=== PATIENT | female | born 2000 | race Hispanic/Latino ===

== ENCOUNTER 2022-05-09 13:27 | Emergency (ER) | payer OTHER, SELFPAY ==
[2022-05-09 13:39] VITALS: BP 122/86; PULSE 104; RESP 22; TEMP 36.5; O2SAT 99; BMI 30.6
--- NOTE | 2022-05-09 14:00 | DI.US.S_ITS ---
PROCEDURE: US PELVIC COMPLETE INDICATIONS: BLEEDING TECHNIQUE: Real-time scanning was performed of the pelvic organs, with image documentation. Additional endovaginal scanning was necessary due to incomplete visualization of the adnexal and endometrial structures by transabdominal scanning. COMPARISON: None. FINDINGS: Uterus: Uterus is anteverted and normal in size at 7 x 3.2 x 3.4 cm. The myometrium is homogeneous. The endometrium measures 7 8 mm combined thickness. No findings of an intrauterine can be seen. No abnormal vascularity can be seen along the endometrial stripe. Ovaries: The right ovary measures 2.9 x 2.1 x 2.2 cm, with a calculated ovarian volume of 6 point cc. The left ovary measures 2.4 x 1.4 x 2 point cm, with a calculated ovarian volume of 3.6 cc. The ovaries have a normal sonographic appearance. Less than 12 follicles can be seen in each ovary. No adnexal masses are seen. Other: No pathologic free abdominal or pelvic fluid. IMPRESSION: No findings of an intrauterine can be seen. No ghislaine findings of ectopic can be seen on these images. Close clinical followup, with serial beta-hCG and serial ultrasound are recommended, if clinically appropriate. We strive to produce accurate, complete, and clear reports of imaging services. To assist us in improving patient care, this report was composed using standard report templates and voice recognition software. Therefore, it may contain abnormal punctuation, insertions and/or omissions. Occasional wrong-word or sound-alike substitutions may occur. Though we review the report and make efforts to correct it, we do recommend that the report be read carefully in proper context to recognize any text inaccuracies. Dictated by: Tremayne Moses M.D. on 05/09/2022 at 14:37 Approved by: Tremayne Moses M.D. on 05/09/2022 at 14:38
[2022-05-09 14:18] LABS: Add Manual Diff / Slide Review NO; Basophils Absolute Auto 0 /uL (0-100); Basophils Percent Auto 0.3 % (0-2); Eosinophils Absolute Auto 100 /uL (0-450); Eosinophils Percent Auto 0.8 % (2-4); Hematocrit 37.4 % (36-46); Hemoglobin 12.7 g/dL (12.0-16.0); Lymphocytes Absolute Auto 2500 /uL (1100-4500); Lymphocytes Percent Auto 21.8 % (25-40); Mean Corpuscular HGB Conc 33.9 % (30-36); Mean Corpuscular Hemoglobin 28.6 PG (26-34); Mean Corpuscular Volume 84.3 fL (80-100); Monocytes Absolute Auto 800 /uL (0-900); Monocytes Percent Auto 7.1 % (3-14); Neutrophils Absolute Auto 8200 /uL (1500-7000); Platelet Count 333 X10^3/uL (150-400); Red Blood Cell Count 4.43 X10^6/uL (4.0-5.2); White Blood Cell Count 11.7 X10^3/uL (4.5-11.0)
[2022-05-09 14:53] LABS: Alanine Aminotransferase 20 IU/L (<35); Albumin 4.7 g/dL (3.5-5.0); Albumin Globulin Ratio 1.3 (1.0-2.8); Alkaline Phosphatase 79 U/L (38-126); Aspartate Aminotransferase 24 IU/L (14-36); BUN Creatinine Ratio 14.1 (6-22); Bilirubin Total 0.4 mg/dL (0.2-1.3); Blood Urea Nitrogen 10 mg/dL (7-17); Calcium 9.5 mg/dL (8.4-10.2); Carbon Dioxide 26 mmol/L (22-32); Chloride 105 mmol/L (98-107); Estimated Glomerular Filt Rate > 60 mL/min (>60); Globulin 3.7 g/dL (1.7-4.1); Glucose 101 mg/dL (70-100); HEMOLYSIS < 15 (0-50); Potassium 3.9 mmol/L (3.4-5.1); Sodium 139 mmol/L (137-145); Total Protein 8.4 g/dL (6.3-8.2)
[2022-05-09 15:14] VITALS: BP 110/72; PULSE 99; RESP 18; O2SAT 99
[2022-05-09 15:18] LABS: HCG Quantitative /Beta subunit < 2.4 mIU/mL
[2022-05-09 15:32] LABS: Appearance Urine UA CLEAR; Bilirubin Urine UA NEGATIVE (NEGATIVE); Color Urine UA YELLOW; Glucose Urine UA NEGATIVE (Negative); Ketones Urine UA NEGATIVE (NEGATIVE); Leukocyte Esterase Urine UA NEGATIVE (NEGATIVE); Nitrite Urine UA NEGATIVE (Negative); Occult Blood Urine UA 3+ (Negative); Protein Urine UA NEGATIVE (Negative); Urobilinogen Urine UA 0.2 E.U./dL (0.2)
[2022-05-09 15:41] LABS: pH Urine UA 6.5 (4.5-8.0)
[2022-05-09 15:42] LABS: Bacteria Urine None Seen; Culture Indicated Urine Cult Not Indicated; RBC Urine 10-30/HPF (0-5/HPF); Squamous Epithelial Cell Urine 0-1 /HPF (0-5/HPF); WBC Urine 0-1/HPF (0-5/HPF)
--- NOTE | 2022-05-09 17:21 | ED_ITS ---
HPI - General Chief complaint: OB/Uterine Contractions Stated complaint: tested +, bleeding 3 days, getting worse Time Seen by Provider: 05/09/22 17:09 Source: patient Mode of arrival: Family Vehicle History of Present Illness HPI Narrative: This is a 22-year-old female with last menstrual period on December 15, patient s tates she typically has irregular periods usually every other month. She did serial test at home in February and states she was negative, she did a test about a week was positive she presents today because she was having vaginal bleeding. Patient states she has not been sexually active since December. She states there was not any sexual activity between her negative test and most recent positive. Patient states she is not on any daily medications she does use condoms for sexual activity. She describes some breast discomfort, some lower pelvic cramping and mild back discomfort. No fevers or chills no chest pain shortness of breath. No nausea or vomiting. No frequency or urgency, occasional dysuria but not persistent. She denies any vaginal discharge. She is not had any spotting or bleeding between December and this month. Patient is not on any contraceptive therapy other than condoms currently. Patient denies any major surgeries. Related Data Allergies Allergy/AdvReac Type Severity Reaction Status Date / Time No Known Drug Allergies Allergy Verified 05/09/22 13:39 Review of Systems Review of Systems ROS Unobtainable: All systems reviewed & are unremarkable except as noted in HPI and below Exam Narrative Exam Narrative: GENERAL: Alert and oriented x three, mild distress HEENT: Head normocephalic, atraumatic, EOMI, pupils reactive, face symmetric, moist mucous membranes NECK: Supple, full range of motion CARDIOVASCULAR: Regular rate and rhythm without murmurs, rubs or gallops. RESPIRATORY: Breath sounds equal bilaterally, no wheezes rales or rhonchi. ABDOMEN: Soft, nontender. Normoactive bowel sounds all 4 quadrants. No guarding or rebound, rigidity, no mass : No CVA tenderness. Patient politely defers pelvic exam. EXTREMITIES: Normal range of motion, no clubbing or edema. Neurovascularly intact NEUROLOGICAL: Cranial nerves II through XII grossly intact. Moving all extremities SKIN: Warm, dry, no petechiae, no rashes or lesions. Initial Vital Signs Initial Vital Signs: Vital Signs Temperature 97.7 F 05/09/22 13:39 Pulse Rate 104 H 05/09/22 13:39 Respiratory Rate 22 05/09/22 13:39 Blood Pressure 122/86 05/09/22 13:39 Pulse Oximetry 99 05/09/22 13:39 Oxygen Delivery Method 05/09/22 13:39 Course Orders Ordered: ED Orders 05/09/22 14:00 US pelvic complete Stat Type and Screen Stat 05/09/22 14:13 Complete Blood Count AUTO DIFF Stat 05/09/22 14:34 Beta HCG, Quant [HCG Quantitative /Beta subunit] Stat CMP [Comprehensive Metabolic Panel] Stat 05/09/22 15:14 Urinalysis and Microscopic Stat Vital Signs Vital signs: Vital Signs - 8 hr 05/09/22 13:39 05/09/22 15:14 05/09/22 17:50 Temperature 97.7 F Pulse Rate 104 H 99 H 88 Respiratory Rate 22 18 18 Blood Pressure 122/86 110/72 Pulse Oximetry 99 99 99 Oxygen Delivery Method Room Air Room Air Room Air MDM - OB/Uterine Contractions Lab Data Result diagrams: 05/09/22 14:13 05/09/22 14:34 Labs: Lab Results 05/09/22 05/09/22 05/09/22 Range/Units 14:00 14:13 14:34 WBC 11.7 H (4.5-11.0) X10^3/uL RBC 4.43 (4.0-5.2) X10^6/uL Hgb 12.7 (12.0-16.0) g/dL Hct 37.4 (36-46) % MCV 84.3 (80-100) fL MCH 28.6 (26-34) PG MCHC 33.9 (30-36) % RDW 14.0 (11.6-14.8) % Plt Count 333 (150-400) X10^3/uL Neut % (Auto) 70.0 (50-75) % Lymph % (Auto) 21.8 L (25-40) % [place] % (Auto) 7.1 (3-14) % Eos % (Auto) 0.8 L (2-4) % Baso % (Auto) 0.3 (0-2) % Neut # (Auto) 8200 H (4699-7828) /uL Lymph # (Auto) 2500 (4721-6353) /uL [place] # (Auto) 800 (0-900) /uL Eos # (Auto) 100 (0-450) /uL Baso # (Auto) 0 (0-100) /uL Sodium (137-145) mmol/L Potassium (3.4-5.1) mmol/L Chloride (98-107) mmol/L Carbon Dioxide (22-32) mmol/L BUN (7-17) mg/dL Creatinine (0.52-1.04) mg/dL Estimated GFR (>60) mL/min BUN/Creatinine Ratio (6-22) Glucose (70-100) mg/dL Calcium (8.4-10.2) mg/dL Total Bilirubin (0.2-1.3) mg/dL AST (14-36) IU/L ALT (<35) IU/L Alkaline Phosphatase (38-126) U/L Total Protein (6.3-8.2) g/dL Albumin (3.5-5.0) g/dL Globulin (1.7-4.1) g/dL Albumin/Globulin Ratio (1.0-2.8) HCG, Quant < 2.4 mIU/mL Urine Color Urine Appearance Urine pH (4.5-8.0) Ur Specific [place] (1.000-1.035) Urine Protein (Negative) Urine Glucose (UA) (Negative) g/dL Urine Ketones (NEGATIVE) Urine Occult Blood (Negative) Urine Nitrate (Negative) Urine Bilirubin (NEGATIVE) Urine Urobilinogen (0.2) E.U./dL Ur Leukocyte Esterase (NEGATIVE) Urine RBC (0-5/HPF) Urine WBC (0-5/HPF) Ur Squamous Epith Cells (0-5/HPF) Urine Bacteria (None) Ur Culture Indicated? Blood Type A Positive Antibody Screen Negative 05/09/22 05/09/22 Range/Units 14:34 15:14 WBC (4.5-11.0) X10^3/uL RBC (4.0-5.2) X10^6/uL Hgb (12.0-16.0) g/dL Hct (36-46) % MCV (80-100) fL MCH (26-34) PG MCHC (30-36) % RDW (11.6-14.8) % Plt Count (150-400) X10^3/uL Neut % (Auto) (50-75) % Lymph % (Auto) (25-40) % [place] % (Auto) (3-14) % Eos % (Auto) (2-4) % Baso % (Auto) (0-2) % Neut # (Auto) (3035-3994) /uL Lymph # (Auto) (2967-4053) /uL [place] # (Auto) (0-900) /uL Eos # (Auto) (0-450) /uL Baso # (Auto) (0-100) /uL Sodium 139 (137-145) mmol/L Potassium 3.9 (3.4-5.1) mmol/L Chloride 105 (98-107) mmol/L Carbon Dioxide 26 (22-32) mmol/L BUN 10 (7-17) mg/dL Creatinine 0.71 (0.52-1.04) mg/dL Estimated GFR > 60 (>60) mL/min BUN/Creatinine Ratio 14.1 (6-22) Glucose 101 H (70-100) mg/dL Calcium 9.5 (8.4-10.2) mg/dL Total Bilirubin 0.4 (0.2-1.3) mg/dL AST 24 (14-36) IU/L ALT 20 (<35) IU/L Alkaline Phosphatase 79 (38-126) U/L Total Protein 8.4 H (6.3-8.2) g/dL Albumin 4.7 (3.5-5.0) g/dL Globulin 3.7 (1.7-4.1) g/dL Albumin/Globulin Ratio 1.3 (1.0-2.8) HCG, Quant mIU/mL Urine Color Yellow Urine Appearance Clear Urine pH 6.5 (4.5-8.0) Ur Specific [place] 1.020 (1.000-1.035) Urine Protein Negative (Negative) Urine Glucose (UA) Negative (Negative) g/dL Urine Ketones Negative (NEGATIVE) Urine Occult Blood 3+ H (Negative) Urine Nitrate Negative (Negative) Urine Bilirubin Negative (NEGATIVE) Urine Urobilinogen 0.2 (0.2) E.U./dL Ur Leukocyte Esterase Negative (NEGATIVE) Urine RBC 10-30/hpf H (0-5/HPF) Urine WBC 0-1/hpf (0-5/HPF) Ur Squamous Epith Cells 0-1 /hpf (0-5/HPF) Urine Bacteria None seen (None) Ur Culture Indicated? Cult not indicated Blood Type Antibody Screen Imaging Data US - RADIOLOGY ADMINISTRATOR: Radiologist's Impression: Close Pelvis Ultrasound (Signed) Tremayne Moses - 05/09/22 Launch?[address] [address] Ultrasound Report Signed Patient: Edith Fox I MR#: [id number] : 2000 Acct:[id number] Age/Sex: 22 / F Date of Service: 05/09/22 Loc: ED Accession Number: [id number] ?? Procedure: US pelvic complete Ordering Provider: Lilliana Nielson D.O. PROCEDURE:? US PELVIC COMPLETE ? INDICATIONS:? BLEEDING ? TECHNIQUE:? Real-time scanning was performed of the pelvic organs, with image documentation.? Additional endovaginal scanning was necessary due to incomplete visualization of the adnexal and endometrial structures by transabdominal scanning.? ? COMPARISON:? None. ? FINDINGS:? ?? Uterus:? Uterus is anteverted and normal in size at 7 x 3.2 x 3.4 cm. The myometrium is homogeneous. ? The endometrium measures 7 8 mm combined thickness.? No findings of an intrauterine can be seen.? No abnormal vascularity can be seen along the endometrial stripe. ? Ovaries:? The right ovary measures 2.9 x 2.1 x 2.2 cm, with a calculated ovarian volume of 6 point cc. The left ovary measures 2.4 x 1.4 x 2 point cm, with a calculated ovarian volume of 3.6 cc. The ovaries have a normal sonographic appearance. Less than 12 follicles can be seen in each ovary.? No adnexal masses are seen. ? Other:? No pathologic free abdominal or pelvic fluid. ? ? IMPRESSION:? No findings of an intrauterine can be seen. ? No ghislaine findings of ectopic can be seen on these images. ? Close clinical followup, with serial beta-hCG and serial ultrasound are recommended, if clinically appropriate. ? We strive to produce accurate, complete, and clear reports of imaging services. To assist us in improving patient care, this report was composed using standard report templates and voice recognition software. Therefore, it may contain abnormal punctuation, insertions and/or omissions. Occasional wrong-word or sound-alike substitutions may occur. Though we review the report and make efforts to correct it, we do rec ommend that the report be read carefully in proper context to recognize any text inaccuracies. ? ? Dictated by: Tremayne Moses M.D. on 05/09/2022 at 14:37 ? ? Approved by: Tremayne Moses M.D. on 05/09/2022 at 14:38?? MDM Narrative Medical decision making narrative: This is a 22-year-old female with last menstrual period being 12/15/2021 started having vaginal bleeding in the last several days. She had negative test in February, states her last sexual activity was in December. Had a positive test in the last week but states no sexual activity in the interim. Suspect patient's test this last wheeze with a false negative. Her HCG today is negative, ultrasound does not show any intrauterine or suspicious changes. Patient CBC, CMP do not show any acute changes, urine shows occult blood 3+, RBCs 10-30 consistent with recent vaginal bleeding no other signs of infection. Discussed with patient I would recommend that she follow-up with OBGYN/primary care for recheck. Patient lives in [place] and is returning in the next week. Patient I discussed plan for follow-up with OBGYN for recheck and that I suspect that this was a false positive but would be appropriate to have repeat testing. Discharge Plan Departure Patient Disposition: Home Clinical Impression: Vaginal bleeding Instructions: DI for Vaginal Bleeding Activity Restrictions/Additional Instructions: Please follow-up for recheck when you return home with mechanical cad designer. Based on our discussion today I suspect that your home test was likely a false positive. Your hCG level or serum level and ultrasound are negative. If you have any repeat home test that are persistently positive please make sure to follow-up. Please return for new or worsening abdominal, back or flank pain, increasing vaginal bleeding and going through a pad or tampon more than once hourly, persistent vomiting or other new or concerning symptoms. Referrals: Miscellaneous,Doctor, MD [Primary Care Provider] - Visit Report Forms: Patient Portal/API
[2022-05-09 17:50] VITALS: PULSE 88; RESP 18; O2SAT 99
== END 2022-05-09 17:51 | disposition home or self-care (01) ==
PROVIDERS: Emergency Provider Emergency Medicine
DX: N93.9 Abnormal uterine and vaginal bleeding, unspecified (principal)
CPT/HCPCS: 36415; 76830; 76856; 80053; 81001; 84702; 85025; 86850; 86900; 86901; 99283; 99284